=== PATIENT | male | born 1965 | race American Indian/Alaskan Native ===

== ENCOUNTER 2018-12-17 09:15 | Emergency (ER) | payer BC ==
[2018-12-17] MEDS ORDERED: dexAMETHasone 4 MG/ML VIAL IV ONE (10:05)
[2018-12-17] MEDS ORDERED: MORPHINE 2 MG/1 ML INJ IV ONE (10:05)
--- NOTE | 2018-12-17 10:11 | Emergency Department Report ---
ED General Adult HPI - General Chief complaint: Back Pain/Injury Stated complaint: BACK PAIN Time Seen by Provider: 12/17/18 09:57 Source: patient, EMS Mode of arrival: Stretcher Limitations: Physical Limitation - History of Present Illness Initial comments: This 53-year-old male with a history of sciatic back pain presents to ED today complaining of excruciating lower back pain that started earlier this morning while he was discharged. Patient states that he went to [employer] pick[employer] his 3-year-old goddaughter and felt a pop back that increased in worsening pain. Patient states that he took a 800 mg Motrin that did not work. She states pain is aggravated with sitting down and try to walk. He any dysuria or problems urinating or any other medical problems. - Related Data Previous Rx's Medication Instructions Recorded Last Taken Type Tizanidine HCl [Zanaflex 2mg CAP] 2 mg PO BID #20 capsule 12/17/18 Unknown Rx Allergies Allergy/AdvReac Type Severity Reaction Status Date / Time No Known Allergies Allergy Unverified 12/17/18 09:36 ED Review of Systems ROS: Stated complaint: BACK PAIN Other details as noted in HPI Comment: All other systems reviewed and negative ED Past Medical Hx - Past Medical History Previous Medical History?: Yes Hx Hypertension: Yes Hx Headaches / Migraines: Yes Additional medical history: Hyperlipidemia - Surgical History Past Surgical History?: Yes Additional Surgical History: R thumb - Social History Smoking Status: Never Smoker Substance Use Type: None - Medications Home Medications: Home Medications Medication Instructions Recorded Confirmed Last Taken Type Tizanidine HCl [Zanaflex 2mg CAP] 2 mg PO BID #20 capsule 12/17/18 Unknown Rx ED Physical Exam - General Limitations: Physical Limitation General appearance: alert, in no apparent distress - Head Head exam: Present: atraumatic, normocephalic - Eye Eye exam: Present: normal appearance - ENT ENT exam: Present: mucous membranes moist - Neck Neck exam: Present: normal inspection - Respiratory Respiratory exam: Present: normal lung sounds bilaterally. Absent: respiratory distress - Cardiovascular Cardiovascular Exam: Present: regular rate, normal rhythm. Absent: systolic murmur, diastolic murmur, rubs, gallop - GI/Abdominal GI/Abdominal exam: Present: soft, normal bowel sounds - Rectal Rectal exam: Present: deferred - Extremities Exam Extremities exam: Present: normal inspection, full ROM - Back Exam Back exam: Present: normal inspection, full ROM, tenderness (palpation of the lumbar spine), muscle spasm. Absent: CVA tenderness (R), CVA tenderness (L) - Neurological Exam Neurological exam: Present: alert, oriented X3, normal gait, reflexes normal, other (leg positive) - Psychiatric Psychiatric exam: Present: normal affect, normal mood - Skin Skin exam: Present: warm, dry, intact, normal color. Absent: rash ED Course Vital Signs 12/17/18 12/17/18 12/17/18 09:33 09:36 10:31 Temperature 98.1 F Pulse Rate 56 L Respiratory 16 16 16 Rate Blood Pressure 160/85 O2 Sat by Pulse 98 98 Oximetry ED Medical Decision Making - Radiology Data Radiology results: report reviewed, image reviewed TECHNIQUE: All CT scans at this location are performed using CT dose reduction for ALARA by means of automated exposure control. COMPARISON: None available. FINDINGS: The L4-5 disc space is mildly narrowed. There is mild diffuse bulging of the L4-5 disc. The bulging disc is causing slight compression of the thecal sac and mild bilateral foraminal narrowing. No focal herniation is seen. There are anterior bridging osteophytes involving both SI joints inferiorly, more prominent on the right than the left. I see no evidence of fracture, subluxation or destructive lesion. There is no evidence of an epidural hematoma. IMPRESSION: 1. Mild diffuse bulging disc at L4-5 without focal disc herniation. 2. Degenerative changes involving both SI joints superiorly. 3. No evidence of fracture. Signer Name: Harvinder Zabala MD Signed: 12/17/2018 10:48 AM Workstation Name: [id number] Transcribed By: RT Dictated By: Harvinder Zabala MD Electronically Authenticated By: Harvinder Zabala MD Signed Date/Time: 12/17/18 1048 - Medical Decision Making 53-year-old male presents to ED with lumbar radiculopathy or sciatic right side Discussion shows bulging disc at L4-L5 with degenerative changes. Discussed this findings with the patient. ED course: Patient received morphine and Decadron in ED. Vital signs are normal patient is in no acute distress Discussed with patient follow-up with primary care physician. Discussed follow- up with orthopedics/neurologist as well. Discussed the patient and take medications as prescribed. Patient has no neurological deficit. Patient is alert and oriented 3 and understands all instructions given. Discussed drowsiness effect of Flexeril makes her drowsy and not to operate machinery while taking flexeril. Critical care attestation.: If time is entered above; I have spent that time in minutes in the direct care of this critically ill patient, excluding procedure time. ED Disposition Clinical Impression: Lumbar radiculopathy, acute, Lumbar strain, Degenerative joint disease (DJD) of lumbar spine Disposition: TO HOME OR SELFCARE Is pt being admited?: No Does the pt Need Aspirin: No Condition: Stable Instructions: Sciatica (ED), Lumbar Radiculopathy (ED) Additional Instructions: Make sure to follow up with the primary care physician as discussed. Take all your medications as you've been prescribed. Follow-up with orthopedic/neurologist as you've been referred. If you have any worsening symptoms or develop new symptoms please return to ED immediately. Prescriptions: Tizanidine HCl [Zanaflex 2mg CAP] 2 mg PO BID #20 capsule Referrals: PRIMARY MD STACIE [Primary Care Provider] - 3-5 Days LUCIANA BRYAN MD [Staff Physician] - 3-5 Days [facility] [Provider Group] - 3-5 Days [facility] [Provider Group] - 3-5 Days Forms: Work/School Release Form Time of Disposition: 10:40
--- NOTE | 2018-12-17 10:52 | Cat Scan Report ---
CT of the lumbosacral spine without contrast and with multiplanar reconstructions INDICATION / CLINICAL INFORMATION: Injury with back pain.. TECHNIQUE: All CT scans at this location are performed using CT dose reduction for ALARA by means of automated e xposure control. COMPARISON: None available. FINDINGS: The L4-5 disc space is mildly narrowed. There is mild diffuse bulging of the L4-5 disc. The bulging d isc is causing slight compression of the thecal sac and mild bilateral foraminal narrowing. No focal herniation is seen. There are anterior bridging osteophytes involving both SI joints inferiorly, more prominent on the right than the left. I see no evidence of fracture, subluxation or destructive lesion. There is no evidence of an epidural hematoma. IMPRESSION: 1. Mild diffuse bulging disc at L4-5 without focal disc herniation. 2. Degenerative changes involving both SI joints superiorly. 3. No evidence of fracture. Signer Name: Harvinder Zabala MD Signed: 12/17/2018 10:48 AM Workstation Name: [id number]
[2018-12-17] MEDS ORDERED: diazePAM 5 MG TAB PO ONE (11:42)
[2018-12-17 12:18] VITALS: BP 136/85
== END 2018-12-17 12:00 | disposition home or self-care (01) ==
LOC: ED 09:15
DX: S39.012A Strain of muscle, fascia and tendon of lower back, initial encounter (principal); M54.16 Radiculopathy, lumbar region; I10 Essential (primary) hypertension; G43.909 Migraine, unspecified, not intractable, without status migrainosus; E78.5 Hyperlipidemia, unspecified; Z79.899 Other long term (current) drug therapy; W22.8XXA Striking against or struck by other objects, initial encounter; Y93.89 Activity, other specified; Y92.89 Other specified places as the place of occurrence of the external cause; Y99.8 Other external cause status
CPT/HCPCS: 72131; 96374; 96375; 99284; J1100; J2270